=== PATIENT | female | born 1980 | race Caucasian/White ===

== ENCOUNTER 2019-05-21 10:00 | Emergency (ER) | payer BC ==
[~2019-05-21] VITALS: Ht 167.6 cm; Wt 127.0 kg
[~2019-05-21 10:00] MED LIST: ALLEGRA-D 24 H1 EACH PO; BACID CAPLET1 EACH PO; BUPROPION XL300 MG PO; CALCIUM 500+VI1 EACH PO; CYCLOBENZAPRINE10 MG PO; FLUTICASONE PRO16 GM NAS; IBUPROFEN600 MG PO; JOLESSA1 EACH PO; L-METHYL-B6-B11 EACH PO; L-METHYLFOLATE15 MG PO; LOMOTIL TABLET1 EACH PO; LORATADINE10 MG PO; MULTIVITAMINS1 EAC7 PO; NORGESTIMATE-E1 EAC1 PO; OMEPRAZOLE20 MG PO; PAXIL40 MG PO; RANITIDINE HCL150 MG PO; VIIBRYD40 MG PO; VISTARIL25 MG PO
--- OUTSIDE RECORDS SUMMARY | 2019-05-21 10:02 | XMS ---
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 Care History Medical/Surgical 09/02/2018 [facility] - Patient is currently established with [facility]. If patient is seen in the ED during business hours. Please contact CHWs at [facility]. Care Recommendation: This patient has had 5 or more Emergency Department visits in the last 12 months.\T\nbsp; Patient requires education on the scope and purpose of the ED as an acute care provider not a Primary Care Provider and should not be utilized for chronic conditions.\T\nbsp; These are guidelines and the provider should exercise clinical judgment when providing care. E.D. VISIT COUNT (12 MO.) 3 [facility] TOTAL 3 NOTE: Visits indicate total known visits. ED/UCC VISIT TRACKING (12 MO.) 05/21/2019 10:01 [facility] [place] TYPE: Emergency COMPLAINT: - SYNCOPE 09/01/2018 11:31 [facility] [place] TYPE: Emergency COMPLAINT: - BACK/ABD PAIN/INJURY DIAGNOSES: - Anxiety disorder, unspecified - Gastro-esophageal reflux disease without esophagitis - Allergy status to other drugs, medicaments and biological substances status - Other shelter (current) drug therapy - Right lower quadrant pain - Major depressive disorder, single episode, unspecified - Low back pain 08/13/2018 12:[address] 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
[2019-05-21] MEDS ORDERED: ZYRTEC10 M3 PO (10:26)
[2019-05-21] MEDS ORDERED: ZOFRAN4 MG PO (12:11)
== END 2019-05-21 13:20 | disposition home or self-care (01) ==
LOC: ED 10:00
DX: R55 Syncope and collapse (principal); R11.2 Nausea with vomiting, unspecified; R19.7 Diarrhea, unspecified; F41.9 Anxiety disorder, unspecified; F32.9 Major depressive disorder, single episode, unspecified; K21.9 Gastro-esophageal reflux disease without esophagitis; Z88.8 Allergy status to other drugs, medicaments and biological substances; Z79.899 Other long term (current) drug therapy
CPT/HCPCS: 80053; 81001; 83690; 84484; 84703; 85025; 96361; 96374; 99284-25; J2405; J7030

== ENCOUNTER 2021-05-09 09:23 | Emergency (ER) | payer BC ==
[~2021-05-09] VITALS: Ht 167.6 cm; Wt 127.0 kg
[~2021-05-09 09:23] MED LIST changes: +ZOFRAN4 MG PO; +ZYRTEC10 M3 PO
--- OUTSIDE RECORDS SUMMARY | 2021-05-09 09:30 | XMS ---
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 Guidelines Date: 02/05/2020 Care Coordination: Member is currently enrolled in Mental Health Services through [employer]. If services are needed through [employer] please call: Derrek [phone] [place]/Jean-Pierre Allison\T\nbsp; [phone] [facility] [phone] Care History Medical/Surgical 09/02/2018 [facility] - Patient is currently established with [facility]. If patient is seen in the ED during business hours. Please contact CHWs at [facility]. Care Recommendation: This patient has had 5 [...] providing care. E.D. VISIT COUNT (12 MO.) 1 [facility] TOTAL 1 NOTE: Visits indicate total known visits. ED/UCC VISIT TRACKING (12 MO.) 05/09/2021 09:24 [facility] [place] TYPE: Emergency COMPLAINT: - NAUSEA,DIZZINESS,RIB PAIN INPATIENT VISIT TRACKING (12 MO.) No inpatient visits to display in this time frame [email or web address]
[2021-05-09] MEDS ORDERED: PRAZOSIN HCL2 MG PO (09:43)
[2021-05-09] MEDS ORDERED: ZIPRASIDONE HCL40 MG PO (09:44)
[2021-05-09] MEDS ORDERED: ONDANSETRON ODT8 MG PO (11:57)
== END 2021-05-09 12:31 | disposition home or self-care (01) ==
LOC: ED 09:23
DX: R07.89 Other chest pain (principal); K29.00 Acute gastritis without bleeding; K21.9 Gastro-esophageal reflux disease without esophagitis; Z88.1 Allergy status to other antibiotic agents; Z79.899 Other long term (current) drug therapy
CPT/HCPCS: 71045; 80053; 81001; 85025; 96374; 96375; 99285-25; J1885; J2405; J7030

== ENCOUNTER 2022-10-08 08:15 | Emergency (ER) | payer BC ==
[~2022-10-08] VITALS: Ht 167.6 cm; Wt 127.7 kg
[~2022-10-08 08:15] MED LIST changes: +ONDANSETRON ODT8 MG PO; +PRAZOSIN HCL2 MG PO; +ZIPRASIDONE HCL40 MG PO
[2022-10-08] MEDS ORDERED: LAMOTRIGINE200 MG PO (08:39)
[2022-10-08] MEDS ORDERED: PAROXETINE HCL30 MG PO (08:39)
[2022-10-08] MEDS ORDERED: GABAPENTIN300 MG PO (08:39)
[2022-10-08] MEDS ORDERED: ONDANSETRON ODT4 MG PO (10:44)
[2022-10-08] MEDS ORDERED: HYDROCODON-ACE1 EA10 PO (10:44)
== END 2022-10-08 10:58 | disposition home or self-care (01) ==
LOC: ED 08:15
DX: N83.291 Other ovarian cyst, right side (principal); K21.9 Gastro-esophageal reflux disease without esophagitis; Z88.8 Allergy status to other drugs, medicaments and biological substances; Z79.899 Other long term (current) drug therapy
CPT/HCPCS: 36415; 76775; 76830; 76856; 80053; 81001; 83690; 85025; 96374; 96375; 99284-25; J1170; J1885; J2405

== ENCOUNTER 2024-02-16 11:12 | Emergency (ER) | payer BC ==
[~2024-02-16] VITALS: Ht 167.6 cm; Wt 126.2 kg
[~2024-02-16 11:12] MED LIST changes: +GABAPENTIN300 MG PO; +HYDROCODON-ACE1 EA10 PO; +LAMOTRIGINE200 MG PO; +ONDANSETRON ODT4 MG PO; +PAROXETINE HCL30 MG PO
[2024-02-16] MEDS ORDERED: ACETAMINOPHEN 500 MG TAB PO ONE (11:45)
[2024-02-16] MEDS ORDERED: KETOROLAC TROMETHAMINE 15 MG/ML VIAL IM ONE (11:45)
[2024-02-16] MEDS ORDERED: LIDODERM1 EACH TOP (15:05)
[2024-02-16] MEDS ORDERED: NAPROSYN500 MG PO (15:05)
[2024-02-16 15:26] VITALS: BP 122/72
== END 2024-02-16 15:31 | disposition home or self-care (01) ==
LOC: ED 11:12
DX: S39.012A Strain of muscle, fascia and tendon of lower back, initial encounter (principal); K21.9 Gastro-esophageal reflux disease without esophagitis; W10.9XXA Fall (on) (from) unspecified stairs and steps, initial encounter; Z79.899 Other long term (current) drug therapy
CPT/HCPCS: 72070; 72100; 72128; 84703; 96372; 99284-25; A9270; J1885

== ENCOUNTER 2024-03-23 11:17 | Emergency (ER) | payer BC ==
[~2024-03-23] VITALS: Ht 167.6 cm; Wt 129.8 kg
[~2024-03-23 11:17] MED LIST changes: +LIDODERM1 EACH TOP; +NAPROSYN500 MG PO
[2024-03-23] MEDS ORDERED: ondansetron HCL 4 MG/2 ML VIAL IV ONE (13:00)
[2024-03-23] MEDS ORDERED: SODIUM CHLORIDE 0.9% 1,000 ML IV ONE (13:00)
[2024-03-23] MEDS ORDERED: ondansetron HCL 4 MG/2 ML VIAL ONE (13:16)
[2024-03-23 13:28] LABS: BASOPHILS 0.7 % (0-2); EOSINOPHILS 1.3 % (0-6); HEMATOCRIT 39.3 % (35.0-50.0); HEMOGLOBIN 13.2 g/dL (12.0-18.0); LYMPHOCYTES 29.8 % (24-44); MCH 29.5 (27-36); MCHC 33.6 g/dl (30-36); MCV 87.8 fl (81-99); MONOCYTES 4.6 % (0-12); NEUTROPHILS 63.6 % (39-80); PLATELET COUNT 289 K/uL (140-440); RBC 4.47 M/ul (4.3-5.7); RDW 13.3 (10.5-15.0)
[2024-03-23 13:46] LABS: ALBUMIN 3.4 g/dL (3.4-5.0); ANION GAP 13.8 (7-21); BILIRUBIN, TOTAL 0.3 ng/dL (0.2-1.0); BUN/CREATININE RATIO 9.87 (6.0-28.6); CALCIUM 8.4 mg/dL (8.5-10.1); CREATININE, SERUM 0.81 mg/dL (0.55-1.02); POTASSIUM 3.8 mmol/L (3.5-5.1); PROTEIN, TOTAL 6.8 g/dL (6.4-8.2)
[2024-03-23] MEDS ORDERED: ONDANSETRON ODT8 MG PO (15:36)
[2024-03-23 15:49] VITALS: BP 136/71
== END 2024-03-23 15:49 | disposition home or self-care (01) ==
LOC: ED 11:17
PROVIDERS: Emergency Medicine
DX: K52.9 Noninfective gastroenteritis and colitis, unspecified (principal); K21.9 Gastro-esophageal reflux disease without esophagitis; Z79.899 Other long term (current) drug therapy; Z88.8 Allergy status to other drugs, medicaments and biological substances
CPT/HCPCS: 36415; 80053; 85025; J2405; J7030

== ENCOUNTER 2024-04-20 13:35 | Emergency (ER) | payer BC ==
[~2024-04-20] VITALS: Ht 167.6 cm; Wt 128.6 kg
[2024-04-20 14:23] LABS: BILIRUBIN, URINE NEGATIVE (negative); BLOOD/HGB, URINE NEGATIVE (Negative); KETONE, URINE NEGATIVE (Negative); LEUK ESTERASE, URINE NEGATIVE (negative); NITRITE, URINE NEGATIVE (negative)
[2024-04-20 14:30] LABS: BASOPHILS 0.7 % (0-2); EOSINOPHILS 0.8 % (0-6); HEMATOCRIT 37.7 % (35.0-50.0); HEMOGLOBIN 12.8 g/dL (12.0-18.0); LYMPHOCYTES 31.2 % (24-44); MCH 29.8 (27-36); MCHC 33.9 g/dl (30-36); MONOCYTES 6.4 % (0-12); NEUTROPHILS 60.9 % (39-80); PLATELET COUNT 255 K/uL (140-440); RBC 4.29 M/ul (4.3-5.7); RDW 13.4 (10.5-15.0)
[2024-04-20] MEDS ORDERED: ondansetron HCL 4 MG/2 ML VIAL IV ONE (14:30)
[2024-04-20] MEDS ORDERED: SODIUM CHLORIDE 0.9% 1,000 ML IV ONE (14:45)
[2024-04-20] MEDS ORDERED: HYDROmorphone HCL 1 MG/ML SYR IV PRN (14:45)
[2024-04-20 14:47] LABS: ALBUMIN 3.5 g/dL (3.4-5.0); ALBUMIN/GLOBULIN RATIO 1.09 (1.1-2.4); ANION GAP 14.5 (7-21); BILIRUBIN, TOTAL 0.3 ng/dL (0.2-1.0); BUN/CREATININE RATIO 7.77 (6.0-28.6); CALCIUM 8.7 mg/dL (8.5-10.1); CREATININE, SERUM 0.9 mg/dL (0.55-1.02); POTASSIUM 3.5 mmol/L (3.5-5.1); PROTEIN, TOTAL 6.7 g/dL (6.4-8.2)
[2024-04-20] MEDS ORDERED: hydrOXYzine pamoate 50 MG CAP PO ONE (15:15)
[2024-04-20] MEDS ORDERED: LORazepam 2 MG/ML VIAL IV ONE (15:45)
[2024-04-20 16:45] VITALS: BP 143/63
== END 2024-04-20 16:45 | disposition home or self-care (01) ==
LOC: ED 13:35
PROVIDERS: Emergency Medicine
DX: K52.9 Noninfective gastroenteritis and colitis, unspecified (principal); Z79.899 Other long term (current) drug therapy; Z88.8 Allergy status to other drugs, medicaments and biological substances; K21.9 Gastro-esophageal reflux disease without esophagitis
CPT/HCPCS: 36415; 80053; 81003; 83690; 85025; 96374; 96375; 99284-25; J1170; J2060; J2405; J7030

== ENCOUNTER 2024-05-12 08:54 | Day surgery (SDC) | payer BC ==
[~2024-05-12] VITALS: Ht 167.6 cm; Wt 128.6 kg
[~2024-05-12 08:54] MED LIST changes: +BUSPIRONE HCL7.5 MG PO; +DAYSEE 0.15-0.1 EACH PO; +DIAZEPAM2 MG PO; +IBLOOD GLUCOSE TEST STRIP 1 EA TEST VI PRN; +LACTATED RINGER'S 1,000 ML IV SCH; +LAMOTRIGINE5 MG PO; +LIDOCAINE HCL 1% 5 ML SDV INJ ONE; +LIDOCAINE1 EACH TOP; +MIDAZOLAM HCL 5 MG/5 ML VIAL IV PRN; +NAPROXEN500 MG PO; +XYZAL5 MG PO; +fentaNYL citrate 100 MCG/2 ML VIAL IV PRN
[2024-05-12 09:11] VITALS: BP 137/64
[2024-05-12] MEDS ORDERED: ACETAMINOPHEN500 M1 PO (09:17)
[2024-05-12] MEDS ORDERED: WAL-PROFEN200 MG NG (09:17)
[2024-05-12] MEDS ORDERED: MIDAZOLAM HCL 5 MG/5 ML VIAL ONE (09:44)
[2024-05-12] MEDS ORDERED: fentaNYL citrate 100 MCG/2 ML VIAL ONE (09:44)
--- NOTE | 2024-05-12 10:47 | NUR ---
05/12/24 1047 Anamaria,Jessica 1037 PT ARRIVED TO PACU ON 2L VIA NC, PT WAKES EASILY AND DENIES CONCERNS. PT ENCOURAGED TO PASS GAS NEEDED. PT WAKES OFF AND ON AND PLAN OF CARE DISCUSSED.
[2024-05-12 11:23] VITALS: BP 119/75
--- NOTE | 2024-05-15 13:20 | OR ---
[facility] [address] [place], [place] [address] Signed DATE OF OPERATION: 05/12/2024 SURGEON: Khai Arellano MD PREOPERATIVE DIAGNOSES: Persistent diarrhea since February 2024; right lower abdominal pain and episodic bright blood per rectum. POSTOPERATIVE DIAGNOSES: Small polyps x4. No evidence of inflammatory bowel disease PROCEDURES: 1. Total colonoscopy to cecum with intubation of ileum and biopsy of ileum, cecum, transverse colon, left colon, and rectum. 2. Cold morcellation polypectomy x4. ANESTHESIA: Intravenous sedation; fentanyl 150 mcg and Versed 10 mg. INDICATION: This 44-year-old white woman is a patient of Dr. Trent. She has had complaints of diarrhea since at least February. She has had significant right lower abdominal pain for the preceding two weeks of my visit in early April. She has had no rectal bleeding in recent times and no pain on defecation. She underwent an ultrasound through emergency room evaluation showing 1 to 2 cm cysts of the ovaries. A CT scan was apparently planned. She has no family history of ulcerative colitis, Crohn disease, and no family history of colon cancer. She does have an underlying history of depression and anxiety as well as eating disorder in the past. She is admitted at this time to undergo colonoscopy to better characterize her symptoms. She understands the risk of bleeding, infection, and perforation. FINDINGS: The prep was adequate with irrigation, but was not optimal at least at the beginning. Complete colonoscopy was undertaken to the cecum and intubation of the ileum was undertaken. The ileum was normal. There was no evidence of inflammatory bowel disease grossly. There were four small polyps, two in the rectum, one in the sigmoid and another in the proximal sigmoid, which were excised. DESCRIPTION OF PROCEDURE: The patient was brought to the endoscopy suite and placed in the lateral decubitus Electronically Signed By: KHAI ARELLANO MD 05/15/24 1320 PATIENT NAME: CASSY GREEN OPERATIVE REPORT DATE OF : 80 REPORT #: [id number] PHYSICIAN: KHAI ARELLANO MD PCP: KIRSTEN TRENT MD REPORT IS CONFIDENTIAL AND NOT TO BE RELEASED WITHOUT AUTHORIZATION [facility] [address] [place], [place] [address] Signed position, given intravenous sedation to the point of slurred speech and nystagmus. Full cardiopulmonary monitoring was maintained. Digital rectal examination was normal. An Olympus video colonoscope was passed in the rectum noting an incomplete bowel prep to some degree. Irrigation was undertaken as necessary and the scope manipulated around the colon, ultimately intubating the cecum itself. The ileocecal valve and appendiceal orifice were normal. Biopsies were taken of the cecum to assess for occult colitis. Given her diarrhea issue from the past, care was taken to intubate the ileum, ultimately accomplished showing normal ileal mucosa. Biopsies were taken nevertheless. The scope was then withdrawn and removed. Irrigation was undertaken upon withdrawal of the scope, which took a fair amount of time as her prep as noted was not optimal. Still good visualization of the mucosa was undertaken and by the end adequate preparation would be assured. Random biopsies were taken throughout the colon and four small polyps were identified, two in the sigmoid, two in the rectum, both sets excised with cold morcellation technique, neither appeared worrisome and they were probably hyperplastic. Biopsies were additionally taken of the rectum. Retroflexed view was normal. Scope was removed and the patient was taken to the recovery room in good condition. CONCLUDING DIAGNOSIS: Four small polyps, not likely contributing to symptoms. Otherwise, normal colon and ileum. PLAN: She will return to the ongoing care of Dr. Trent. We will review her pathology reports. Repeat colonoscopy in 3 to 5 years would be appropriate if adenomas were identified on pathology. We will check a celiac disease panel. MD TATIANA Fontana/SHERWINL /[id number] cc: Kirsten Trent MD Electronically Signed By: KHAI ARELLANO MD 05/15/24 1320 PATIENT NAME: CASSY GREEN OPERATIVE REPORT DATE OF : 80 REPORT #: [id number] PHYSICIAN: KHAI ARELLANO MD PCP: KIRSTEN TRENT MD REPORT IS CONFIDENTIAL AND NOT TO BE RELEASED WITHOUT AUTHORIZATION [facility] [address] [place], [place] [address] Signed Copies: ~ Electronically Signed By: KHAI ARELLANO MD 05/15/24 1320 PATIENT NAME: CASSY GREEN OPERATIVE REPORT DATE OF : 80 REPORT #: [id number] PHYSICIAN: KHAI ARELLANO MD PCP: KIRSTEN TRENT MD REPORT IS CONFIDENTIAL AND NOT TO BE RELEASED WITHOUT AUTHORIZATION
--- NOTE | 2024-05-18 17:27 | PATH ---
[facility] [address] [place] [address] Signed SPECIMEN(S): A CECUM COLON BIOPSY SPECIMEN(S): B TERMINAL ILEUM BIOPSY SPECIMEN(S): C HEPATIC FLEXURE COLON BIOPSY SPECIMEN(S): D TRANSVERSE COLON BIOPSY SPECIMEN(S): E SIGMOID COLON BIOPSY SPECIMEN(S): F RECTOSIGMOID POLYP SPECIMEN(S): G RECTAL POLYP SPECIMEN(S): H RECTAL POLYP #2 SPECIMEN SOURCE: A. CECUM COLON BIOPSY B. TERMINAL ILEUM BIOPSY C. HEPATIC FLEXURE COLON BIOPSY D. TRANSVERSE COLON BIOPSY E. SIGMOID COLON BIOPSY F. RECTOSIGMOID POLYP G. RECTAL POLYP H. RECTAL POLYP #2 CLINICAL HISTORY: Diarrhea, abdominal pain. FINAL PATHOLOGIC DIAGNOSIS: A. Cecum colon, biopsy: - Benign colonic mucosa, negative for specific diagnostic abnormality. B. Terminal ileum, biopsy: - Benign small bowel mucosa, negative for specific diagnostic abnormality. C. Hepatic flexure colon, biopsy: - Benign colonic mucosa, negative for specific diagnostic abnormality. D. Transverse colon, biopsy: - Benign colonic mucosa, negative for specific diagnostic abnormality. E. Sigmoid colon, biopsy: - Benign colonic mucosa, negative for specific diagnostic abnormality. F. Rectosigmoid polyp: - Hyperplastic polyp (two fragments). G. Rectal polyp: - Hyperplastic polyp (three fragments). H. Rectal polyp #2: - Hyperplastic polyp (one fragment). JVR:cml PATIENT NAME: CASSY MURPHY JED PATHOLOGY DATE OF : 80 REPORT #: [id number] PHYSICIAN: RICHMOND PRETTY PCP: KIRSTEN RICHARD MD REPORT IS CONFIDENTIAL AND NOT TO BE RELEASED WITHOUT AUTHORIZATION [facility] [address] [place], [place] [address] Signed MICROSCOPIC EXAMINATION: Histologic sections of all submitted blocks are examined by light microscopy. These findings, together with the gross examination, support the pathologic diagnosis. GROSS DESCRIPTION: A. The specimen, labeled and designated "Jeffrey, K, 1.," and designated on the requisition "cecum biopsy," is received in formalin and consists of one plummer soft tissue fragment that is 1.0 cm in greatest dimension. The specimen is entirely submitted in (A1). B. The specimen, labeled and designated "Jeffrey, K, 2.," and designated on the requisition "terminal ileum biopsy," is received in formalin and consists of three plummer soft tissue fragments that measure 0.4-0.5 cm in greatest dimension. The specimen is entirely submitted in (B1). C. The specimen, labeled and designated "Jeffrey, K, 3.," and designated on the requisition "hepatic flexure biopsy," is received in formalin and consists of seven plummer soft tissue fragments that measure 0.2-0.7 cm in greatest dimension. The specimen is entirely submitted in (C1). D. The specimen, labeled and designated "Jeffrey, K, 4.," and designated on the requisition "transverse biopsy," is received in formalin and consists of four plummer soft tissue fragments that measure 0.4-0.5 cm in greatest dimension. The specimen is entirely submitted in (D1). E. The specimen, labeled and designated "Jeffrey, K, 5.," and designated on the requisition "sigmoid biopsy," is received in formalin and consists of two plummer soft tissue fragments that measure each 0.4 cm in greatest dimension. The specimen is entirely submitted in (E1). F. The specimen, labeled and designated "Narciso Murphy, 6.," and designated on the requisition "rectosigmoid polypectomy," is received in formalin and consists of two plummer soft tissue fragments that measure 0.2 and 0.3 cm in greatest dimension. The specimen is entirely submitted in (F1). G. The specimen, labeled and designated "Narciso Murphy, 7.," and designated on the requisition "rectum polypectomy," is received in formalin and consists of three plummer soft tissue fragments that measure 0.1-0.4 cm in greatest dimension. The specimen is entirely submitted in (G1). H. The specimen, labeled and designated "Narciso Murphy, 8.," and designated on the requisition "rectum polypectomy #2," is received in formalin and consists of one plummer soft tissue fragment that is 0.4 cm in greatest dimension. The specimen is entirely submitted in (H1). FB (under the direct supervision of a pathologist) PATIENT NAME: CASSY MURPHY PATHOLOGY DATE OF : 80 REPORT #: [id number] PHYSICIAN: RICHMOND PRETTY PCP: KIRSTEN RICHARD MD REPORT IS CONFIDENTIAL AND NOT TO BE RELEASED WITHOUT AUTHORIZATION [address] [address] Signed The Gross Description was prepared using a voice recognition system. The report was reviewed for accuracy; however, sound-alike word errors, addition and/or deletions may occur. If there is any question about this report, please contact Client Services. PERFORMING LABORATORY: Technical component was performed by [employer], [address] [place] [id number] (CLIA# [id number]). Professional interpretation was performed by [facility], [address] [place] [phone] (CLIA#: [id number]). Diagnostician: Alex Gorman MD Pathologist Electronically Signed 05/18/2024 Copies: ~ PATIENT NAME: CASSY MURPHY PATHOLOGY DATE OF : 80 REPORT #: [id number] PHYSICIAN: RICHMOND PRETTY PCP: KIRSTEN RICHARD MD REPORT IS CONFIDENTIAL AND NOT TO BE RELEASED WITHOUT AUTHORIZATION
== END 2024-05-12 11:32 | disposition home or self-care (01) ==
LOC: OPS 08:54 → DS 08:54 → OPS 08:55 → DS 11:15 → OPS 11:15
PROVIDERS: ATTEND Surgery
PROC: 0DBN8ZX Excision of Sigmoid Colon, Via Natural or Artificial Opening Endoscopic, Diagnostic (ICD-10-PCS; 2024-05-12)
PROC: 0DBP8ZX Excision of Rectum, Via Natural or Artificial Opening Endoscopic, Diagnostic (ICD-10-PCS; principal; 2024-05-12 09:50)
DX: K63.5 Polyp of colon (principal); K62.1 Rectal polyp; R19.7 Diarrhea, unspecified; K92.1 Melena; K21.00 Gastro-esophageal reflux disease with esophagitis, without bleeding; E66.9 Obesity, unspecified; Z90.49 Acquired absence of other specified parts of digestive tract; Z68.42 Body mass index [BMI] 45.0-49.9, adult
CPT/HCPCS: 84703; 99153; G0500; J2250; J3010; J7121

== ENCOUNTER 2024-09-06 15:54 | Emergency (ER) | payer BC ==
[~2024-09-06] VITALS: Ht 167.6 cm; Wt 137.4 kg
[~2024-09-06 15:54] MED LIST changes: +ACETAMINOPHEN500 M1 PO; -IBLOOD GLUCOSE TEST STRIP 1 EA TEST VI PRN; -LACTATED RINGER'S 1,000 ML IV SCH; -LIDOCAINE HCL 1% 5 ML SDV INJ ONE; -MIDAZOLAM HCL 5 MG/5 ML VIAL IV PRN; +WAL-PROFEN200 MG NG; -fentaNYL citrate 100 MCG/2 ML VIAL IV PRN
[2024-09-06] MEDS ORDERED: ALBUTEROL/IPRATROPIUM 3 ML NEB INH PRN (16:15)
[2024-09-06 16:30] LABS: BASOPHILS 0.8 % (0-2); EOSINOPHILS 1.1 % (0-6); HEMATOCRIT 38.2 % (35.0-50.0); HEMOGLOBIN 13.1 g/dL (12.0-18.0); LYMPHOCYTES 30.8 % (24-44); MCH 30.2 (27-36); MCHC 34.3 g/dl (30-36); MCV 88.2 fl (81-99); MONOCYTES 5.9 % (0-12); NEUTROPHILS 61.4 % (39-80); PLATELET COUNT 278 K/uL (140-440); RBC 4.33 M/ul (4.3-5.7); RDW 13.2 (10.5-15.0)
[2024-09-06] MEDS ORDERED: KETOROLAC TROMETHAMINE 15 MG/ML VIAL IV ONE (16:30)
[2024-09-06 16:48] LABS: ALBUMIN 3.7 g/dL (3.4-5.0); ALBUMIN/GLOBULIN RATIO 1.12 (1.1-2.4); ALKALINE PHOSPHATASE 73 U/L (46-116); ALT (SGPT) 16 U/L (14-59); ANION GAP 16.5 (7-21); AST (SGOT) 12 U/L (15-37); BILIRUBIN, TOTAL 0.3 ng/dL (0.2-1.0); BUN/CREATININE RATIO 8.51 (6.0-28.6); CALCIUM 8.7 mg/dL (8.5-10.1); CARBON DIOXIDE 24 mmol/L (21-32); CHLORIDE 104 mmol/L (98-107); CREATININE, SERUM 0.94 mg/dL (0.55-1.02); GLOMERULAR FILTRATION RATE,EST 77 mL/min (>60); MAGNESIUM 1.8 mg/dL (1.8-2.4); POTASSIUM 3.5 mmol/L (3.5-5.1); UREA NITROGEN 8 mg/dL (7-18)
[2024-09-06] MEDS ORDERED: ondansetron HCL 4 MG/2 ML VIAL IV ONE (18:15)
[2024-09-06 19:34] VITALS: BP 128/83
--- NOTE | 2024-09-06 23:01 | EKG ---
[facility] [address] [facility] [place], [place] [address] Signed Normal sinus rhythm Normal ECG Confirmed by Iman Molina MD () on 09/06/2024 11:01:15 PM Electronically Signed By: IMAN MOLINA MD 09/06/24 230 PATIENT NAME: CASSY GREEN Electrocardiogram DATE OF : 80 PHYSICIAN: IMAN MOLINA MD REPORT #: [id number] REPORT IS CONFIDENTIAL AND NOT TO BE RELEASED WITHOUT AUTHORIZATION
== END 2024-09-06 19:38 | disposition home or self-care (01) ==
LOC: ED 15:54
PROVIDERS: Emergency Medicine
DX: R07.81 Pleurodynia (principal); K21.9 Gastro-esophageal reflux disease without esophagitis; Z88.8 Allergy status to other drugs, medicaments and biological substances; Z79.899 Other long term (current) drug therapy
CPT/HCPCS: 36415; 71045; 71260; 80053; 83690; 83735; 84484; 84703; 85025; 85379; 93005; 93010; 99285-25; J1885; J2405; Q9967

== ENCOUNTER 2024-11-02 10:39 | Emergency (ER) | payer OTHER ==
[~2024-11-02] VITALS: Ht 167.6 cm; Wt 131.1 kg
[2024-11-02] MEDS ORDERED: HYDROCODONE/ACETA 5/325 TAB PO ONE (11:15)
[2024-11-02] MEDS ORDERED: ONDANSETRON 4 MG TAB ODT SL ONE (11:15)
[2024-11-02] MEDS ORDERED: ONDANSETRON ODT4 MG PO (12:08)
[2024-11-02] MEDS ORDERED: HYDROCODON-ACE1 EA10 PO (12:08)
[2024-11-02 12:15] VITALS: BP 106/51
== END 2024-11-02 12:15 | disposition home or self-care (01) ==
LOC: ED 10:39
DX: S23.41XA Sprain of ribs, initial encounter (principal); X50.1XXA Overexertion from prolonged static or awkward postures, initial encounter; K21.9 Gastro-esophageal reflux disease without esophagitis; Z88.8 Allergy status to other drugs, medicaments and biological substances; Z79.899 Other long term (current) drug therapy
CPT/HCPCS: 72070; 99283; A9270

== ENCOUNTER 2024-11-14 13:19 | Emergency (ER) | payer OTHER ==
[~2024-11-14] VITALS: Ht 167.6 cm; Wt 142.7 kg
[2024-11-14 13:38] LABS: BASOPHILS 0.7 % (0-2); EOSINOPHILS 2.3 % (0-6); HEMATOCRIT 40.2 % (35.0-50.0); HEMOGLOBIN 14.2 g/dL (12.0-18.0); LYMPHOCYTES 43.1 % (24-44); MCH 30.4 (27-36); MCHC 35.2 g/dl (30-36); MCV 86.2 fl (81-99); MONOCYTES 7.1 % (0-12); NEUTROPHILS 46.8 % (39-80); PLATELET COUNT 340 K/uL (140-440); RBC 4.67 M/ul (4.3-5.7); RDW 13.3 (10.5-15.0)
[2024-11-14 13:53] LABS: ALBUMIN 3.4 g/dL (3.4-5.0); ALBUMIN/GLOBULIN RATIO 0.85 (1.1-2.4); ALKALINE PHOSPHATASE 70 U/L (46-116); ALT (SGPT) 26 U/L (14-59); ANION GAP 14.5 (7-21); AST (SGOT) 27 U/L (15-37); BILIRUBIN, TOTAL 0.3 mg/dL (0.2-1.0); BUN/CREATININE RATIO 10.81 (6.0-28.6); CARBON DIOXIDE 25 mmol/L (21-32); CHLORIDE 104 mmol/L (98-107); CREATININE, SERUM 0.74 mg/dL (0.55-1.02); GLOMERULAR FILTRATION RATE,EST 102 mL/min (>60); MAGNESIUM 1.8 mg/dL (1.8-2.4); POTASSIUM 4.5 mmol/L (3.5-5.1); PROTEIN, TOTAL 7.4 g/dL (6.4-8.2); UREA NITROGEN 8 mg/dL (7-18)
[2024-11-14] MEDS ORDERED: ondansetron HCL 4 MG/2 ML VIAL IV ONE (14:00)
[2024-11-14 16:26] VITALS: BP 137/82
--- NOTE | 2024-11-14 17:45 | EKG ---
[facility] [address] [facility] [place], [place] [address] Signed Normal sinus rhythm Normal ECG When compared with ECG of 06-SEP-2024 16:12, No significant change was found Confirmed by Nick Jimenez MD ([id number]) on 11/14/2024 5:44:49 PM Electronically Signed By: NICK JIMENEZ MD 11/14/24 1745 PATIENT NAME: CASSY GREEN JED Electrocardiogram DATE OF : 80 PHYSICIAN: NICK JIMENEZ MD REPORT #: [id number] REPORT IS CONFIDENTIAL AND NOT TO BE RELEASED WITHOUT AUTHORIZATION
== END 2024-11-14 16:30 | disposition home or self-care (01) ==
LOC: ED 13:19
PROVIDERS: Emergency Medicine
DX: R07.89 Other chest pain (principal); K21.9 Gastro-esophageal reflux disease without esophagitis; Z88.8 Allergy status to other drugs, medicaments and biological substances; Z79.899 Other long term (current) drug therapy
CPT/HCPCS: 36415; 71045; 80053; 83735; 83880; 84484; 85025; 85379; 93005; 93010; 96374; 99285-25; J2405

== ENCOUNTER 2024-11-27 14:16 | Emergency (ER) | payer OTHER ==
[~2024-11-27] VITALS: Ht 167.6 cm; Wt 144.2 kg
[2024-11-27 16:18] VITALS: BP 136/87
== END 2024-11-27 16:19 | disposition home or self-care (01) ==
LOC: ED 14:16
DX: M25.512 Pain in left shoulder (principal); K21.9 Gastro-esophageal reflux disease without esophagitis; Z88.8 Allergy status to other drugs, medicaments and biological substances; Z79.899 Other long term (current) drug therapy
CPT/HCPCS: 99283

== ENCOUNTER 2025-03-22 13:41 | Emergency (ER) | payer OTHER ==
[~2025-03-22] VITALS: Ht 167.6 cm; Wt 148.6 kg
[2025-03-22] MEDS ORDERED: ondansetron HCL 4 MG/2 ML VIAL IV ONE (14:15)
[2025-03-22 14:28] LABS: BASOPHILS 0.4 % (0.1-1.2); EOSINOPHILS 1.6 % (0.7-5.8); HEMATOCRIT 37.8 % (34.1-44.9); HEMOGLOBIN 12.6 g/dL (11.2-15.7); LYMPHOCYTES 34.9 % (19.3-51.7); MCH 27.9 PG (25.6-32.2); MCHC 33.3 g/dL (32.2-35.5); MCV 83.8 fL (79.4-94.8); MONOCYTES 6.8 % (4.7-12.5); NEUTROPHILS 56.2 % (34.0-71.1); PLATELET COUNT 302 K/uL (182-369); RBC 4.51 M/uL (3.93-5.22)
[2025-03-22 14:32] LABS: BILIRUBIN, URINE NEGATIVE (negative); BLOOD/HGB, URINE NEGATIVE (Negative); KETONE, URINE NEGATIVE (Negative); LEUK ESTERASE, URINE NEGATIVE (negative); NITRITE, URINE NEGATIVE (negative)
[2025-03-22 15:04] LABS: ALBUMIN 3.7 g/dL (3.4-5.0); ALBUMIN/GLOBULIN RATIO 1.09 (1.1-2.4); ANION GAP 11.7 (7-21); BILIRUBIN, TOTAL 0.4 mg/dL (0.2-1.0); BUN/CREATININE RATIO 9.47 (6.0-28.6); CALCIUM 9.3 mg/dL (8.5-10.1); CREATININE, SERUM 0.95 mg/dL (0.55-1.02); POTASSIUM 3.7 mmol/L (3.5-5.1); PROTEIN, TOTAL 7.1 g/dL (6.4-8.2)
[2025-03-22] MEDS ORDERED: KETOROLAC TROMETHAMINE 15 MG/ML VIAL IV ONE (15:30)
[2025-03-22] MEDS ORDERED: SODIUM CHLORIDE 0.9% 1,000 ML IV PRN (15:30)
[2025-03-22 19:17] VITALS: BP 119/70
== END 2025-03-22 19:20 | disposition home or self-care (01) ==
LOC: ED 13:41
PROVIDERS: Emergency Medicine
DX: R10.32 Left lower quadrant pain (principal); R10.12 Left upper quadrant pain; K21.9 Gastro-esophageal reflux disease without esophagitis; Z79.899 Other long term (current) drug therapy; Z88.8 Allergy status to other drugs, medicaments and biological substances
CPT/HCPCS: 36415; 74177; 80053; 81003; 83690; 84703; 85025; 96361; 96375; 99284-25; J1885; J2405; J7030; Q9967